=== PATIENT | female | born 1955 | race Caucasian/White ===

== ENCOUNTER 2016-08-14 06:47 | Day surgery (SDC) | payer OTHER ==
[~2016-08-14] VITALS: Ht 162.6 cm; Wt 106.4 kg
[~2016-08-14 06:47] MED LIST: ALBU8HFA IH; AMLO-511 PO; IPRNEB IH; LOSA1TAB40 PO; OXYC15TA2 PO; PRED10 PO; PRED20 PO; PRED5 PO; SODIUM CHLORIDE 0.9% 1,000 ML IV ONE
[2016-08-14] MEDS ORDERED: SODIUM CHLORIDE 0.9% 1,000 ML IV ONE (06:51)
[2016-08-14 07:55] VITALS: BP 212/94
[2016-08-14] MEDS ORDERED: IOHEXOL 300 MG/ML 10 ML VIAL ONE (08:00)
[2016-08-14] MEDS ORDERED: BUPIVACAINE HCL/PF 0.75% 10 ML VIAL ONE (08:00)
[2016-08-14] MEDS ORDERED: DiphenhydrAMINE HCL 50 MG/ML VIAL ONE (08:00)
[2016-08-14] MEDS ORDERED: LIDOCAINE HCL/PF 1% 30 ML VIAL ONE (08:00)
[2016-08-14] MEDS ORDERED: SODIUM BICARBONATE 50 MEQ/50 ML VIAL ONE (08:00)
[2016-08-14] MEDS ORDERED: MIDAZOLAM HCL 2 MG/2 ML VIAL ONE ×2 (08:00→08:27)
[2016-08-14] MEDS ORDERED: TRIAMCINOLONE ACETONIDE 40 MG/ML VIAL ONE ×2 (08:00→08:10)
[2016-08-14] MEDS ORDERED: HYDROmorphone 2 MG/ML SYRINGE ONE (08:06)
[2016-08-14] MEDS ORDERED: BUPIVACAINE HCL/PF 0.75% 10 ML VIAL IARTIC ONE (08:15)
[2016-08-14] MEDS ORDERED: IOHEXOL 300 MG/ML 10 ML VIAL IARTIC ONE (08:15)
[2016-08-14] MEDS ORDERED: LIDOCAINE 1% 30 ML/SOD BICARB 8.4% 4 ML SQ ONE (08:15)
[2016-08-14] MEDS ORDERED: MIDAZOLAM HCL 2 MG/2 ML VIAL IVP ONE ×2 (08:15→08:45)
[2016-08-14] MEDS ORDERED: HYDROmorphone 2 MG/ML SYRINGE IVP ONE (08:15)
[2016-08-14] MEDS ORDERED: TRIAMCINOLONE ACETONIDE 40 MG/ML VIAL IARTIC ONE (08:15)
[2016-08-14] MEDS ORDERED: DiphenhydrAMINE HCL 50 MG/ML VIAL IVP ONE (08:15)
[2016-08-14] MEDS ORDERED: LIDOCAINE HCL/PF 2% 5 ML VIAL ONE (08:31)
[2016-08-14 08:48] VITALS: BP 140/68
== END 2016-08-14 10:40 | disposition home or self-care (01) ==
LOC: SDS 06:47
PROVIDERS: ATTEND Specialist
DX: M54.12 Radiculopathy, cervical region (principal); M47.896 Other spondylosis, lumbar region; I10 Essential (primary) hypertension; G89.29 Other chronic pain; M54.5 Low back pain; Z98.51 Tubal ligation status; Z88.8 Allergy status to other drugs, medicaments and biological substances
CPT/HCPCS: 62321; 64493; 64494; J1170; J1200; J2250; J3301; J3490 ×3; J7030; Q9967

== ENCOUNTER 2016-12-20 06:45 | Day surgery (SDC) | payer OTHER ==
[~2016-12-20] VITALS: Ht 161.3 cm; Wt 104.5 kg
[~2016-12-20 06:45] MED LIST changes: -ALBU8HFA IH; -IPRNEB IH; -OXYC15TA2 PO; -PRED10 PO; -PRED20 PO; -PRED5 PO
[2016-12-20] MEDS ORDERED: HYDROmorphone 2 MG/ML SYRINGE IVP ONE ×3 (07:00→08:30)
[2016-12-20] MEDS ORDERED: HYDROmorphone 2 MG/ML SYRINGE ONE ×2 (07:07→08:09)
[2016-12-20] MEDS ORDERED: TRIAMCINOLONE ACETONIDE 40 MG/ML VIAL ONE (07:35)
[2016-12-20] MEDS ORDERED: BUPIVACAINE HCL/PF 0.75% 10 ML VIAL ONE (07:35)
[2016-12-20] MEDS ORDERED: LIDOCAINE HCL/PF 2% 5 ML VIAL ONE (07:36)
[2016-12-20] MEDS ORDERED: LIDOCAINE HCL/PF 1% 30 ML VIAL ONE (07:36)
[2016-12-20] MEDS ORDERED: IOHEXOL 300 MG/ML 10 ML VIAL ONE (07:36)
[2016-12-20 08:03] VITALS: BP 192/92
[2016-12-20] MEDS ORDERED: MIDAZOLAM HCL 2 MG/2 ML VIAL ONE (08:10)
[2016-12-20] MEDS ORDERED: DiphenhydrAMINE HCL 50 MG/ML VIAL ONE (08:10)
[2016-12-20] MEDS ORDERED: LIDOCAINE HCL/PF 2% 5 ML VIAL IARTIC ONE (08:30)
[2016-12-20] MEDS ORDERED: DiphenhydrAMINE HCL 50 MG/ML VIAL IVP ONE (08:30)
[2016-12-20] MEDS ORDERED: IOHEXOL 300 MG/ML 10 ML VIAL IARTIC ONE (08:30)
[2016-12-20] MEDS ORDERED: TRIAMCINOLONE ACETONIDE 40 MG/ML VIAL IARTIC ONE (08:30)
[2016-12-20] MEDS ORDERED: MIDAZOLAM HCL 2 MG/2 ML VIAL IVP ONE ×2 (08:30)
[2016-12-20 08:37] VITALS: BP 159/73
== END 2016-12-20 10:25 | disposition home or self-care (01) ==
LOC: SDS 06:45
PROVIDERS: ATTEND Specialist
DX: M47.816 Spondylosis without myelopathy or radiculopathy, lumbar region (principal); G89.29 Other chronic pain; Z98.51 Tubal ligation status; Z88.6 Allergy status to analgesic agent; Z91.041 Radiographic dye allergy status
CPT/HCPCS: 64493; 64494; J1170; J1200; J2250; J3301; J3490 ×2; J7030; Q9967

== ENCOUNTER 2016-12-27 06:35 | Day surgery (SDC) | payer OTHER ==
[~2016-12-27] VITALS: Ht 160 cm; Wt 104.5 kg
[~2016-12-27 06:35] MED LIST changes: -SODIUM CHLORIDE 0.9% 1,000 ML IV ONE
[2016-12-27] MEDS ORDERED: SODIUM CHLORIDE 0.9% 1,000 ML IV ONE ×2 (06:48→07:00)
[2016-12-27] MEDS ORDERED: 0.9% SODIUM CHLORIDE 10 ML SYRINGE IVP ONE (07:17)
[2016-12-27] MEDS ORDERED: BUPIVACAINE HCL/PF 0.75% 10 ML VIAL ONE (07:20)
[2016-12-27] MEDS ORDERED: TRIAMCINOLONE ACETONIDE 40 MG/ML VIAL ONE (07:20)
[2016-12-27] MEDS ORDERED: LIDOCAINE HCL/PF 2% 5 ML VIAL ONE (07:21)
[2016-12-27] MEDS ORDERED: LIDOCAINE HCL/PF 1% 30 ML VIAL ONE (07:21)
[2016-12-27] MEDS ORDERED: IOHEXOL 300 MG/ML 10 ML VIAL ONE (07:21)
[2016-12-27] MEDS ORDERED: HYDROmorphone 2 MG/ML SYRINGE ONE ×2 (07:24→07:42)
[2016-12-27] MEDS ORDERED: HYDROmorphone 2 MG/ML SYRINGE IVP ONE ×3 (07:30→08:02)
[2016-12-27] MEDS ORDERED: DiphenhydrAMINE HCL 50 MG/ML VIAL ONE (07:31)
[2016-12-27] MEDS ORDERED: LEVO2TAB4 PO (07:39)
[2016-12-27] MEDS ORDERED: OXYC10 PO (07:39)
[2016-12-27] MEDS ORDERED: MIDAZOLAM HCL 2 MG/2 ML VIAL ONE ×2 (07:43→07:57)
[2016-12-27 07:47] VITALS: BP 218/101
[2016-12-27] MEDS ORDERED: DiphenhydrAMINE HCL 50 MG/ML VIAL IVP ONE (07:55)
[2016-12-27] MEDS ORDERED: MIDAZOLAM HCL 2 MG/2 ML VIAL IVP ONE ×2 (07:55→08:02)
[2016-12-27] MEDS ORDERED: LIDOCAINE HCL 1% 20 ML VIAL INJ ONE (08:05)
[2016-12-27] MEDS ORDERED: LIDOCAINE HCL/PF 2% 5 ML VIAL IARTIC ONE (08:06)
[2016-12-27] MEDS ORDERED: IOHEXOL 300 MG/ML 10 ML VIAL IARTIC ONE (08:09)
[2016-12-27] MEDS ORDERED: TRIAMCINOLONE ACETONIDE 40 MG/ML VIAL IARTIC ONE (08:15)
[2016-12-27 08:17] VITALS: BP 184/86
== END 2016-12-27 09:45 | disposition home or self-care (01) ==
LOC: SDS 06:35
PROVIDERS: ATTEND Specialist
DX: M54.12 Radiculopathy, cervical region (principal); M47.816 Spondylosis without myelopathy or radiculopathy, lumbar region; G89.29 Other chronic pain; M54.5 Low back pain; I10 Essential (primary) hypertension; Z88.8 Allergy status to other drugs, medicaments and biological substances; Z98.890 Other specified postprocedural states; Z98.51 Tubal ligation status
CPT/HCPCS: 62321; J1170; J1200; J2250; J3490 ×3; J7030; Q9967; J3301

== ENCOUNTER 2017-05-05 14:07 | Emergency (ER) | payer MEDICAID, OTHER ==
[~2017-05-05] VITALS: Ht 160 cm; Wt 95.5 kg
[~2017-05-05 14:07] MED LIST changes: +LEVO2TAB4 PO; +OXYC10 PO
[2017-05-05] MEDS ORDERED: SUMAtriptan SUCCINATE 6 MG/0.5 ML VIAL SQ ONE (14:30)
[2017-05-05] MEDS ORDERED: SODIUM CHLORIDE 0.9% 1,000 ML IV ONE (14:30)
[2017-05-05] MEDS ORDERED: KETOROLAC TROMETHAMINE 30 MG/ML VIAL IVP ONE (14:30)
[2017-05-05 15:25] LABS: INFLUENZA TYPE A NEGATIVE FOR TYPE A (NEGATIVE); INFLUENZA TYPE B NEGATIVE FOR TYPE B (NEGATIVE)
[2017-05-05 15:37] LABS: BASOPHILS % (AUTO) 0.2 % (0.0-2.0); EOSINOPHILS % (AUTO) 3.5 % (1.0-6.0); HEMATOCRIT 23.4 % (36-46); HEMOGLOBIN 8.1 g/dL (12.0-16.0); LYMPHOCYTES # (AUTO) 0.7 K/uL (1.0-4.8); LYMPHOCYTES % (AUTO) 15.6 % (22.0-44.0); MEAN CORPUSCULAR HEMOGLOBIN 33.2 pg (26.0-34.0); MEAN CORPUSCULAR HGB CONC 34.4 G/dL (31.0-37.0); MEAN CORPUSCULAR VOLUME 97 fL (80-100); MONOCYTES # (AUTO) 0.3 K/uL (0.1-1.0); MONOCYTES % (AUTO) 6.2 % (2.0-9.0); NEUTROPHILS # (AUTO) 3.5 K/uL (1.8-7.7); NEUTROPHILS % (AUTO) 74.5 % (40.0-70.0); PLATELET COUNT (AUTO) 105 K/uL (150-450); RED BLOOD CELL COUNT(AUTO) 2.43 MIL/uL (4.00-5.20); RED CELL DISTRIBUTION WIDTH 13.7 % (11.5-14.5)
[2017-05-05 17:41] VITALS: BP 172/91
[2017-05-05 21:59] LABS: ANION GAP 7 mmol/L (8-16); CALCIUM, TOTAL 9.1 mg/dL (8.8-10.5); CARBON DIOXIDE 29 mmol/L (22-29); CHLORIDE 103 mmol/L (98-107); CREATININE 0.87 mg/dL (0.60-1.30); GLOMERULAR FILTR. RATE CALC > 60 mL/min (>60); GLUCOSE,RANDOM 105 mg/dL (70-110); POTASSIUM 3.7 mmol/L (3.5-5.1); SODIUM SERUM 139 mmol/L (136-145); UREA NITROGEN, BLOOD 11 mg/dL (7-18)
== END 2017-05-05 17:46 | disposition home or self-care (01) ==
LOC: EMS 14:08
DX: G43.909 Migraine, unspecified, not intractable, without status migrainosus (principal); D64.9 Anemia, unspecified; I10 Essential (primary) hypertension; G89.4 Chronic pain syndrome; Z88.5 Allergy status to narcotic agent; Z91.041 Radiographic dye allergy status
CPT/HCPCS: 36415; 71010; 80048; 85025; 87804; 96372; 96374; 99285; J1885; J3030; J7030

== ENCOUNTER 2017-06-22 08:59 | Emergency (ER) | payer SELFPAY ==
[~2017-06-22] VITALS: Ht 162.6 cm; Wt 95.0 kg
[~2017-06-22 08:59] MED LIST changes: -LOSA1TAB40 PO
[2017-06-22] MEDS ORDERED: LOSA1TAB2 PO (09:18)
[2017-06-22] MEDS ORDERED: BISO5TAB26 PO (09:18)
[2017-06-22] MEDS ORDERED: OxyCODONE HCL 30 MG ER TABLET PO ONE (09:45)
[2017-06-22] MEDS ORDERED: OxyCODONE HCL 10 MG ER TABLET PO ONE (10:00)
[2017-06-22 10:08] LABS: BASOPHILS % (AUTO) 0.6 % (0.0-2.0); EOSINOPHILS % (AUTO) 1.4 % (1.0-6.0); HEMATOCRIT 40.9 % (36-46); HEMOGLOBIN 13.8 g/dL (12.0-16.0); LYMPHOCYTES # (AUTO) 2.4 K/uL (1.0-4.8); LYMPHOCYTES % (AUTO) 30.9 % (22.0-44.0); MEAN CORPUSCULAR HGB CONC 33.7 G/dL (31.0-37.0); MEAN CORPUSCULAR VOLUME 95 fL (80-100); MONOCYTES # (AUTO) 0.4 K/uL (0.1-1.0); MONOCYTES % (AUTO) 5.8 % (2.0-9.0); NEUTROPHILS # (AUTO) 4.7 K/uL (1.8-7.7); NEUTROPHILS % (AUTO) 61.3 % (40.0-70.0); PLATELET COUNT (AUTO) 177 K/uL (150-450); RED BLOOD CELL COUNT(AUTO) 4.32 MIL/uL (4.00-5.20); RED CELL DISTRIBUTION WIDTH 12.8 % (11.5-14.5)
[2017-06-22 10:15] LABS: ANION GAP 8 mmol/L (8-16); CALCIUM, TOTAL 8.8 mg/dL (8.8-10.5); CARBON DIOXIDE 29 mmol/L (22-29); CHLORIDE 105 mmol/L (98-107); CREATININE 0.72 mg/dL (0.60-1.30); GLOMERULAR FILTR. RATE CALC > 60 mL/min (>60); GLUCOSE,RANDOM 148 mg/dL (70-110); POTASSIUM 3.5 mmol/L (3.5-5.1); SODIUM SERUM 142 mmol/L (136-145); UREA NITROGEN, BLOOD 9 mg/dL (7-18)
[2017-06-22 10:22] LABS: ALANINE AMINOTRANSFERASE 16 U/L (12-78); ALBUMIN 3.4 g/dL (3.4-5.0); ALKALINE PHOSPHATASE 133 U/L (46-116); ASPARTATE AMINOTRANSFERASE 11 U/L (15-37); BILIRUBIN,TOTAL 0.4 mg/dL (0.1-1.0); CREATINE KINASE, TOTAL 67 U/L (26-192); TOTAL PROTEIN, SERUM 6.7 g/dL (6.4-8.2)
[2017-06-22 10:34] LABS: B-TYPE NATRIURETIC PEPTIDE 144 pg/mL (0-100)
[2017-06-22 12:32] VITALS: BP 117/56
== END 2017-06-22 12:55 | disposition home or self-care (01) ==
LOC: EEVIPCON 09:01 → EMS 09:01
DX: R00.2 Palpitations (principal); R00.1 Bradycardia, unspecified; I10 Essential (primary) hypertension; G89.29 Other chronic pain; Z91.041 Radiographic dye allergy status; Z88.5 Allergy status to narcotic agent; Z88.8 Allergy status to other drugs, medicaments and biological substances
CPT/HCPCS: 93005; 99285

== ENCOUNTER 2017-08-21 10:57 | Inpatient (IN) | payer SELFPAY ==
[~2017-08-21] VITALS: Ht 172.7 cm; Wt 105.4 kg
[~2017-08-21 10:57] MED LIST changes: +BISO5TAB26 PO; +HYDR-4172 PO; -LEVO2TAB4 PO; +LISI40TA4 PO; +TELM40 PO
[2017-08-21] MEDS ORDERED: CLON-570 PO (11:11)
[2017-08-21] MEDS ORDERED: SODIUM CHLORIDE 0.9% 1,000 ML IV ONE (11:15)
[2017-08-21] MEDS ORDERED: HYDROmorphone 2 MG/ML SYRINGE IVP ONE ×2 (11:30→13:30)
[2017-08-21 11:32] LABS: BASOPHILS % (AUTO) 0.6 % (0.0-2.0); EOSINOPHILS % (AUTO) 2.1 % (1.0-6.0); HEMATOCRIT 40.6 % (36-46); HEMOGLOBIN 13.9 g/dL (12.0-16.0); LYMPHOCYTES # (AUTO) 2.4 K/uL (1.0-4.8); MEAN CORPUSCULAR HEMOGLOBIN 32.4 pg (26.0-34.0); MEAN CORPUSCULAR HGB CONC 34.2 G/dL (31.0-37.0); MEAN CORPUSCULAR VOLUME 95 fL (80-100); MONOCYTES # (AUTO) 0.5 K/uL (0.1-1.0); MONOCYTES % (AUTO) 7.8 % (2.0-9.0); NEUTROPHILS # (AUTO) 3.5 K/uL (1.8-7.7); NEUTROPHILS % (AUTO) 52.5 % (40.0-70.0); PLATELET COUNT (AUTO) 211 K/uL (150-450); RED BLOOD CELL COUNT(AUTO) 4.29 MIL/uL (4.00-5.20); RED CELL DISTRIBUTION WIDTH 14.2 % (11.5-14.5)
[2017-08-21 11:37] LABS: ANION GAP 6 mmol/L (8-16); CALCIUM, TOTAL 9.1 mg/dL (8.8-10.5); CARBON DIOXIDE 30 mmol/L (22-29); CHLORIDE 102 mmol/L (98-107); CREATININE 0.83 mg/dL (0.60-1.30); GLOMERULAR FILTR. RATE CALC > 60 mL/min (>60); GLUCOSE,RANDOM 142 mg/dL (70-110); POTASSIUM 4.2 mmol/L (3.5-5.1); SODIUM SERUM 138 mmol/L (136-145); UREA NITROGEN, BLOOD 10 mg/dL (7-18)
[2017-08-21 11:42] LABS: ALANINE AMINOTRANSFERASE 23 U/L (12-78); ALBUMIN 3.4 g/dL (3.4-5.0); ALKALINE PHOSPHATASE 120 U/L (46-116); ASPARTATE AMINOTRANSFERASE 20 U/L (15-37); BILIRUBIN,TOTAL 0.5 mg/dL (0.1-1.0); TOTAL PROTEIN, SERUM 6.9 g/dL (6.4-8.2)
[2017-08-21 11:57] LABS: B-TYPE NATRIURETIC PEPTIDE 18 pg/mL (0-100)
[2017-08-21] MEDS ORDERED: ALBUTEROL SULFATE 2.5 MG/0.5 ML NEB SOLUTION NEB PRN (14:00)
[2017-08-21] MEDS ORDERED: MAGNESIUM HYDROXIDE SUSPENSION 30 ML UDCUP PO PRN (14:00)
[2017-08-21] MEDS ORDERED: ONDANSETRON HCL 4 MG/2 ML VIAL IVP PRN (14:00)
[2017-08-21] MEDS ORDERED: ACETAMINOPHEN 325 MG TABLET PO PRN (14:00)
[2017-08-21 14:36] LABS: APPEARANCE,URINE CLOUDY (CLEAR); BILIRUBIN,URINE NEGATIVE (NEGATIVE); GLUCOSE, URINE (UA) NEGATIVE (NEGATIVE); KETONES,URINE NEGATIVE (NEGATIVE); LEUKOCYTE ESTERASE ,URINE NEGATIVE (NEGATIVE); NITRATE,URINE POSITIVE (NEGATIVE); OCCULT BLOOD,URINE NEGATIVE (NEGATIVE); PROTEIN,URINE NEGATIVE (NEGATIVE); UROBILINOGEN,URINE 0.2 mg/dL (<=1.0)
[2017-08-21 14:52] LABS: THYROID STIMULATING HORMONE 0.73 uIU/mL (0.36-3.74)
[2017-08-21 15:24] LABS: RBC,URINE None Seen /HPF (0-2)
[2017-08-21 15:25] VITALS: BP 107/53
[2017-08-21 15:25] LABS: BACTERIA,URINE Moderate /HPF (None Seen); SQUAMOUS EPITHELIAL CELL,UR Moderate /LPF (None Seen)
[2017-08-21] MEDS: OxyCODONE HCL 10 MG IR TABLET PO PRN ×2 (16:17→20:26)
[2017-08-21 19:50] VITALS: BP 120/59
[2017-08-21] MEDS: DOCUSATE SODIUM 100 MG CAPSULE PO SCH (20:25)
[2017-08-21] MEDS: ATORVASTATIN CALCIUM 20 MG TABLET PO SCH (20:25)
[2017-08-22] MEDS: OxyCODONE HCL 10 MG IR TABLET PO PRN ×6 (01:18→22:46)
[2017-08-22 01:19] VITALS: BP 137/54
[2017-08-22 07:32] VITALS: BP 115/56
[2017-08-22] MEDS: DOCUSATE SODIUM 100 MG CAPSULE PO SCH ×2 (08:24→19:59)
[2017-08-22] MEDS: PANTOPRAZOLE SODIUM 40 MG DR TABLET PO SCH (08:25)
[2017-08-22] MEDS: AmLODIPine BESYLATE 10 MG TABLET PO SCH (08:25)
[2017-08-22] MEDS: LISINOPRIL 20 MG TABLET PO SCH (08:26)
[2017-08-22 11:22] VITALS: BP 107/49
[2017-08-22 16:13] VITALS: BP 126/67
[2017-08-22 19:20] VITALS: BP 127/67
[2017-08-22] MEDS: ATORVASTATIN CALCIUM 20 MG TABLET PO SCH (19:59)
[2017-08-22 22:00] VITALS: BP 152/71
[2017-08-22] MEDS: CefTRIAXone SODIUM 1 GM in DEXTROSE 5%-WATER 10 ML IV SCH (23:19)
[2017-08-23] MEDS: OxyCODONE HCL 10 MG IR TABLET PO PRN ×5 (02:44→19:52)
[2017-08-23 04:06] VITALS: BP_SYST 129; BP_SYST 136; BP_DIAS 67; BP_DIAS 91
[2017-08-23] MEDS: DOCUSATE SODIUM 100 MG CAPSULE PO SCH ×2 (07:17→19:56)
[2017-08-23] MEDS: PANTOPRAZOLE SODIUM 40 MG DR TABLET PO SCH (07:17)
[2017-08-23 07:19] VITALS: BP 126/78
[2017-08-23] MEDS: AmLODIPine BESYLATE 10 MG TABLET PO SCH (07:21)
[2017-08-23] MEDS: LISINOPRIL 20 MG TABLET PO SCH (07:22)
[2017-08-23 11:45] VITALS: BP 132/53
[2017-08-23 15:52] VITALS: BP 114/66
[2017-08-23 19:39] VITALS: BP 138/74
[2017-08-23] MEDS: ATORVASTATIN CALCIUM 20 MG TABLET PO SCH (19:56)
[2017-08-23] MEDS: CefTRIAXone SODIUM 1 GM in DEXTROSE 5%-WATER 10 ML IV SCH (22:15)
[2017-08-24 00:03] VITALS: BP 133/67
[2017-08-24] MEDS: OxyCODONE HCL 10 MG IR TABLET PO PRN ×4 (01:04→13:40)
[2017-08-24 04:37] VITALS: BP 109/51
[2017-08-24 07:38] VITALS: BP 122/65
[2017-08-24] MEDS: AmLODIPine BESYLATE 10 MG TABLET PO SCH (09:00)
[2017-08-24] MEDS: LISINOPRIL 20 MG TABLET PO SCH (09:00)
[2017-08-24] MEDS: DOCUSATE SODIUM 100 MG CAPSULE PO SCH (09:37)
[2017-08-24] MEDS: PANTOPRAZOLE SODIUM 40 MG DR TABLET PO SCH (09:37)
[2017-08-24] MEDS ORDERED: MECLIZINE HCL 25 MG TABLET PO PRN (10:30)
[2017-08-24] MEDS ORDERED: KETOROLAC TROMETHAMINE 15 MG/ML VIAL IVP PRN (10:30)
[2017-08-24] MEDS ORDERED: GADOBUTROL 1 MMOL/ML 10 ML VIAL IVP ONE (10:36)
[2017-08-24 11:14] VITALS: BP 156/73
[2017-08-24] MEDS ORDERED: CEPH500 PO (13:59)
[2017-08-24] MEDS ORDERED: ATOR20TA86 PO (13:59)
[2017-08-24] MEDS ORDERED: LISI-662 PO (14:00)
[2017-08-24] MEDS ORDERED: MECL-111 PO (14:01)
== END 2017-08-24 16:10 | disposition home or self-care (01) | DRG 309 ==
LOC: EMS 10:58 → 5S 13:59
PROVIDERS: ADMIT Internal Medicine; ATTEND Internal Medicine
DX: R00.1 Bradycardia, unspecified (principal); F11.20 Opioid dependence, uncomplicated; N39.0 Urinary tract infection, site not specified; H81.10 Benign paroxysmal vertigo, unspecified ear; E66.9 Obesity, unspecified; G43.909 Migraine, unspecified, not intractable, without status migrainosus; G89.29 Other chronic pain; I10 Essential (primary) hypertension; I44.0 Atrioventricular block, first degree; S00.03XA Contusion of scalp, initial encounter; W18.30XA Fall on same level, unspecified, initial encounter; Y93.89 Activity, other specified; Y92.89 Other specified places as the place of occurrence of the external cause; Y99.8 Other external cause status; Z88.5 Allergy status to narcotic agent; Z91.041 Radiographic dye allergy status; Z79.899 Other long term (current) drug therapy; Z98.51 Tubal ligation status; Z68.35 Body mass index [BMI] 35.0-35.9, adult; Z82.49 Family history of ischemic heart disease and other diseases of the circulatory system; Z83.3 Family history of diabetes mellitus
CPT/HCPCS: 70450; 70553; 72125; 82948; 84443; 87086; 93005; 93306; 93880; 96361; 96374; 96376; 99285; A9585; J0696; J1170; J7060

== ENCOUNTER 2017-12-20 12:31 | Emergency (ER) | payer SELFPAY ==
[~2017-12-20] VITALS: Ht 162.6 cm; Wt 102.3 kg
[~2017-12-20 12:31] MED LIST changes: +ATOR20TA86 PO; -BISO5TAB26 PO; +CEPH500 PO; -HYDR-4172 PO; +MECL-111 PO; -TELM40 PO
[2017-12-20] MEDS ORDERED: CLIN150C9 PO (12:39)
[2017-12-20] MEDS ORDERED: ALBUTEROL SULFATE HFA 90 MCG/PUFF 8 GM INHALER IH ONE (13:15)
[2017-12-20 13:28] LABS: EOSINOPHILS % (AUTO) 3.8 % (1.0-6.0); HEMATOCRIT 38.1 % (36-46); HEMOGLOBIN 12.7 g/dL (12.0-16.0); LYMPHOCYTES # (AUTO) 0.9 K/uL (1.0-4.8); LYMPHOCYTES % (AUTO) 27.1 % (22.0-44.0); MEAN CORPUSCULAR HEMOGLOBIN 31.4 pg (26.0-34.0); MEAN CORPUSCULAR HGB CONC 33.2 G/dL (31.0-37.0); MEAN CORPUSCULAR VOLUME 94 fL (80-100); MONOCYTES # (AUTO) 0.3 K/uL (0.1-1.0); MONOCYTES % (AUTO) 9.2 % (2.0-9.0); NEUTROPHILS % (AUTO) 57.9 % (40.0-70.0); PLATELET COUNT (AUTO) 141 K/uL (150-450); RED BLOOD CELL COUNT(AUTO) 4.03 MIL/uL (4.00-5.20); RED CELL DISTRIBUTION WIDTH 14.3 % (11.5-14.5)
[2017-12-20 13:39] LABS: ANION GAP 9 mmol/L (8-16); CALCIUM, TOTAL 8.2 mg/dL (8.8-10.5); CARBON DIOXIDE 25 mmol/L (22-29); CHLORIDE 103 mmol/L (98-107); CREATININE 0.81 mg/dL (0.60-1.30); GLOMERULAR FILTR. RATE CALC > 60 mL/min (>60); GLUCOSE,RANDOM 215 mg/dL (70-110); POTASSIUM 3.6 mmol/L (3.5-5.1); SODIUM SERUM 137 mmol/L (136-145); UREA NITROGEN, BLOOD 8 mg/dL (7-18)
[2017-12-20 13:44] LABS: ALANINE AMINOTRANSFERASE 18 U/L (12-78); ALBUMIN 3.4 g/dL (3.4-5.0); ALKALINE PHOSPHATASE 111 U/L (46-116); ASPARTATE AMINOTRANSFERASE 21 U/L (15-37); BILIRUBIN,TOTAL 0.4 mg/dL (0.1-1.0)
[2017-12-20] MEDS ORDERED: AZITHROMYCIN 250 MG TABLET PO ONE (14:45)
[2017-12-20 14:57] VITALS: BP 159/89
== END 2017-12-20 15:15 | disposition home or self-care (01) ==
LOC: EMS 12:33
DX: J18.9 Pneumonia, unspecified organism (principal); I10 Essential (primary) hypertension; Z88.5 Allergy status to narcotic agent; Z91.041 Radiographic dye allergy status; Z88.8 Allergy status to other drugs, medicaments and biological substances
CPT/HCPCS: 94640; 99285; J3535

== ENCOUNTER 2017-12-26 01:28 | Emergency (ER) | payer SELFPAY ==
[~2017-12-26] VITALS: Ht 162.6 cm; Wt 100.0 kg
[~2017-12-26 01:28] MED LIST changes: -CEPH500 PO; +CLIN150C9 PO
[2017-12-26] MEDS ORDERED: ALBUTEROL SULFATE 5 MG/ML 20 ML NEB SOLN [BULK] NEB ONE (02:00)
[2017-12-26] MEDS ORDERED: IPRATROPIUM BROMIDE 0.5 MG/2.5 ML NEB SOLUTION NEB ONE (02:00)
[2017-12-26] MEDS ORDERED: 0.9% SODIUM CHLORIDE 5 ML NEB SOLUTION NEB ONE (02:09)
[2017-12-26 02:22] LABS: BASOPHILS % (AUTO) 0.5 % (0.0-2.0); EOSINOPHILS % (AUTO) 2.3 % (1.0-6.0); HEMATOCRIT 40.9 % (36-46); HEMOGLOBIN 13.4 g/dL (12.0-16.0); LYMPHOCYTES # (AUTO) 1.9 K/uL (1.0-4.8); LYMPHOCYTES % (AUTO) 30.9 % (22.0-44.0); MEAN CORPUSCULAR HEMOGLOBIN 31.2 pg (26.0-34.0); MEAN CORPUSCULAR HGB CONC 32.9 G/dL (31.0-37.0); MEAN CORPUSCULAR VOLUME 95 fL (80-100); MONOCYTES # (AUTO) 0.3 K/uL (0.1-1.0); MONOCYTES % (AUTO) 5.2 % (2.0-9.0); NEUTROPHILS # (AUTO) 3.8 K/uL (1.8-7.7); NEUTROPHILS % (AUTO) 61.1 % (40.0-70.0); PLATELET COUNT (AUTO) 240 K/uL (150-450); RED BLOOD CELL COUNT(AUTO) 4.31 MIL/uL (4.00-5.20); RED CELL DISTRIBUTION WIDTH 13.9 % (11.5-14.5)
[2017-12-26 02:32] LABS: ANION GAP 9 mmol/L (8-16); CALCIUM, TOTAL 8.9 mg/dL (8.8-10.5); CARBON DIOXIDE 28 mmol/L (22-29); CHLORIDE 103 mmol/L (98-107); CREATININE 0.83 mg/dL (0.60-1.30); GLOMERULAR FILTR. RATE CALC > 60 mL/min (>60); GLUCOSE,RANDOM 160 mg/dL (70-110); POTASSIUM 3.4 mmol/L (3.5-5.1); SODIUM SERUM 140 mmol/L (136-145); UREA NITROGEN, BLOOD 8 mg/dL (7-18)
[2017-12-26 02:38] LABS: ALANINE AMINOTRANSFERASE 24 U/L (12-78); ALBUMIN 3.6 g/dL (3.4-5.0); ALKALINE PHOSPHATASE 128 U/L (46-116); ASPARTATE AMINOTRANSFERASE 14 U/L (15-37); BILIRUBIN,TOTAL 0.4 mg/dL (0.1-1.0); TOTAL PROTEIN, SERUM 8.1 g/dL (6.4-8.2)
[2017-12-26 03:52] VITALS: BP 156/83
== END 2017-12-26 03:55 | disposition home or self-care (01) ==
LOC: EMS 01:29
DX: J40 Bronchitis, not specified as acute or chronic (principal); I10 Essential (primary) hypertension; G43.909 Migraine, unspecified, not intractable, without status migrainosus; Z88.5 Allergy status to narcotic agent; Z88.8 Allergy status to other drugs, medicaments and biological substances; Z91.041 Radiographic dye allergy status; Z79.899 Other long term (current) drug therapy
CPT/HCPCS: 36415; 71045; 80053; 85025; 94644; 99285; J7611